=== PATIENT | female | born 1940 | race Caucasian/White ===

== ENCOUNTER → 2017-04-26 | Outpatient (CLI) | payer MEDICARE ==
--- NOTE | 2017-04-26 14:21 | US ---
EXAMINATION TYPE: US venous doppler duplex LE DATE OF EXAM: 04/26/2017 1:58 PM COMPARISON: NONE CLINICAL HISTORY: L03.119 Cellulitis of lower extremity. Bilateral leg pain and redness SIDE PERFORMED: Bilateral TECHNIQUE: The lower extremity deep venous system is examined utilizing real time linear array sonog zoe with graded compression, doppler sonography and color-flow sonography. VESSELS IMAGED: External Iliac Vein (EIV) Common Femoral Vein Deep Femoral Vein Greater Saphenous Vein * Femoral Vein Popliteal Vein Small Saphenous Vein * Proximal Calf Veins (* superficial vessels) Grayscale, color doppler, spectral doppler imaging performed of the deep veins of the lower extremiti es. There is normal flow, compressibility, vascular waveforms. Right Leg: Negative for DVT Left Leg: Negative for DVT IMPRESSION: No evidence for dvt
--- NOTE | 2017-05-04 15:39 | P.ARTDOP ---
Arterial Doppler LOWER EXTREMITY ARTERIAL DOPPLER: DATE OF SERVICE: 04/26/2017 Reason for study: Bilateral leg pain. Doppler waveforms: Multiphasic bilaterally throughout. Pulse volume recording: []. Pressure gradients: None. Ankle-brachial indices: Greater than 1 bilaterally. Toe pressures: [] on the right, [] on the left Impression: Normal study.
== END | disposition home or self-care (01) ==
LOC: RADUSWWP 12:53
PROVIDERS: ATTEND Family Medicine
DX: R09.89 Other specified symptoms and signs involving the circulatory and respiratory systems (principal); L03.119 Cellulitis of unspecified part of limb
CPT/HCPCS: 93922; 93970

== ENCOUNTER → 2017-06-22 | Outpatient (CLI) | payer MEDICARE ==
--- NOTE | 2017-06-23 10:30 | MM ---
Reason for exam: screening (asymptomatic). Last mammogram was performed 1 year and 3 months ago. History: Patient is postmenopausal. Family history of breast cancer in sister at age 72. Took hormonal contraceptives for 3 years beginning at age 24. Took estrogen for 2 years beginning at age 40. Took progesterone for 2 years beginning at age 40. Physical Findings: A clinical breast exam by your physician is recommended on an annual basis and results should be correlated with mammographic findings. MG 3D Screening Mammo W/Cad Bilateral CC and MLO view(s) were taken. Prior study comparison: March 10, 2016, bilateral MG 3d diag mammo w/cad DAE. March 05, 2015, bilateral MG diagnostic mammo w CAD DAE. November 28, 2013, bilateral digital screening mammo w/CAD. The breast tissue is heterogeneously dense. This may lower the sensitivity of mammography. No suspicious abnormality. No significant changes when compared with prior studies. ASSESSMENT: Negative, BI-RAD 1 RECOMMENDATION: Routine screening mammogram of both breasts in 1 year.
--- NOTE | 2017-06-23 11:48 | BD ---
EXAMINATION TYPE: MG DEXA axial skeleton. DATE OF EXAM: 06/22/2017 COMPARISON: NONE CLINICAL HISTORY: Postmenopausal female Height: 5 FT 6IN Weight: 160 FRAX RISK QUESTIONS: Alcohol (3 or more units per day): NO Family History (Parent hip fracture): NO Glucocorticoids (More than 3mos): NO (Ex: prednisone, prednisolone, methylprednisolone, dexamethasone, and hydrocortisone). History of Fracture in Adulthood: YES Secondary Osteoporosis: 1. Type 1 Diabetes: NO 2. Hyperthyroidism: NO 3. Menopause before 45: NO 4. Malnutrition: NO 5. Chronic liver disease: NO Rheumatoid Arthritis: NO Current Tobacco Use: NO RISK FACTORS HISTORY OF: Postmenopausal woman: AGE 50 Additional Medications: VICODIN, HYDROCODONE, ZANAFLEX, Additional History: PT HAS MS EXAM MEASUREMENTS: Bone mineral densitometry was performed using the [employer] System. Bone mineral density as measured about the Lumbar spine is: ----- L1-L4(G/cm2): 1.229 T Score Values are as follows: ----- L2: 0.6 ----- L3: 2.2 ----- L4: -0.4 ----- L1-L4: 0.4 Bone mineral density has: Increased 7.2% since study of: 2014 Bone mineral density about the R hip (g/cm2): 0.748 Bone mineral density about the L hip (g/cm2): 0.726 T Score values are as follows: -----R Neck: -2.1 -----L Neck: -2.2 -----R Total: -2.0 -----L Total: -2.1 Bone mineral density has: Decreased -7.3% since study of: 2014 IMPRESSION: Findings compatible with osteopenia about the lumbar spine as such there is increased fracture risk. NOTE: T-SCORE=SD OF THE YOUNG ADULT MEAN.
== END | disposition home or self-care (01) ==
LOC: RADMAMWWP 15:40
PROVIDERS: ATTEND Obstetrics & Gynecology
DX: Z12.31 Encounter for screening mammogram for malignant neoplasm of breast (principal); M85.88 Other specified disorders of bone density and structure, other site
CPT/HCPCS: 77080; 77063; G0202

== ENCOUNTER 2017-08-10 08:48 | Day surgery (SDC) | payer MEDICARE ==
[2017-08-08 11:11] VITALS: BMI 25.8
[~2017-08-10 08:48] MED LIST: LACTATED RINGERS 1,000 ML IV SCH; LIDOCAINE 1% 20 ML VIAL (10MG/ML) FOR IV START INTRADERMA PRN; MOXIFLOXACIN HCL 0.5% DROPS 3 ML BTL OP ONE; PHENYLEPHRINE 2.5% OPHTH DRP 2ML OP NR; TETRACAINE 0.5% OPHTH (PF) DROPS 4 ML BTL OP ONE; TIMOLOL 0.5% OPHTH SOLN (PF) 0.2 ML DROPERETTE OP ONE
[2017-08-10 10:13] VITALS: TEMP 98
[2017-08-10] MEDS: CYCLOPENTOLATE 1% OPHTH SOLN 2 ML BTL OP ONE ×3 (10:17→10:38)
[2017-08-10] MEDS ORDERED: MIDAZOLAM 2 MG/2 ML VIAL ONE (10:53)
[2017-08-10] MEDS ORDERED: fentaNYL (PF) 50 MCG/ML 2 ML AMP ONE (10:53)
[2017-08-10] MEDS ORDERED: DUOVISC KIT (GREEN BOX) INTRAOCULA ONE (10:54)
[2017-08-10] MEDS ORDERED: LIDOCAINE 1% (PF) 10MG/ML VIAL SQ ONE (10:54)
[2017-08-10] MEDS ORDERED: BALANCED SALT IRRIG SOLN COMB2 15 ML IRRIG.SOLN INTRAOCULA ONE (10:54)
[2017-08-10] MEDS ORDERED: EPINEPHrine (PF) 0.3 ML in BALANCED SALT IRRIG SOLN COMB2 500 ML IRRIGATION ONE (10:55)
--- NOTE | 2017-08-10 11:31 | P.OP ---
Date of Procedure: 08/10/17 Preoperative Diagnosis: NS & PSC & POA mild Postoperative Diagnosis: same Procedure(s) Performed: PIOL OS & iStent implantation Implants: PCB0 20.50 & iStent [id number] Anesthesia: MAC Surgeon: Víctor Logan Estimated Blood Loss (ml): 0 Pathology: none sent Condition: stable Disposition: same day Indications for Procedure: POAG & glaucoma Operative Findings: No complications
[2017-08-10 11:34] VITALS: PULSE 62
[2017-08-10 11:47] VITALS: BP 164/82; RESP 16
--- NOTE | 2017-08-11 06:04 | OP ---
OPERATIVE REPORT DATE OF SURGERY: August 10, 2017. PROCEDURE: Phacoemulsification of cataract in the left eye with an eye stent implantation, left eye. PREOPERATIVE DIAGNOSES: Nuclear sclerosis, cortical sclerosis and posterior subcapsular cataract with primary open-angle glaucoma mild stage. SURGEON: Dr. Víctor Logan. ANESTHESIA: Topical. ESTIMATED BLOOD LOSS: None. SPECIMEN: Taken none. NARRATIVE: After obtaining the appropriate consent, the patient was brought to the operating room there she was placed under cardiac monitoring, prepped and draped in the usual sterile manner. She was approached from the left temporal side and at the 5 o'clock position a 1.1 mm stab blade was used to create a paracentesis port. Through this opening, 1% Xylocaine MPF 50 50 mix of balanced salt solution was injected into the anterior chamber. This was followed by stabilization of the anterior chamber with Viscoat. At the 3 o'clock position a 2.5 mm keratome was used to create a self-sealing corneal flap incision in a Langerman's fashion. The patient's was then rotated, her head was rotated to approximately 45 degrees to her right. [place] prism was placed on the eye to examine the trabecular meshwork on the nasal side of the iris. This was easily seen and a Glaukos eye stent model GTS [id number] was passed across the anterior chamber and into the trabecular meshwork without difficulty. The stent was confirmed in the proper position and the patient was then returned to the normal supine position to complete the cataract. At this point a cystotome was introduced to begin a continuous tear capsulorrhexis which was then completed using the Utrata forceps. Hydrodissection and hydrodelineation of the lens was accomplished with balanced salt solution. Phacoemulsification of the lens was utilized using phaco chop was accomplished at 15.26 seconds at 12% power. Additional Xylocaine MPF was instilled in the anterior chamber. This was followed by careful removal of the remaining cortex and careful polishing of the posterior capsule in the capsule vacuum mode. Additional viscoelastic was then used to stabilize the capsular bag and the anterior chamber. An ANTHONY PCB 0 0 20.5 diopter posterior chamber intraocular lens was then introduced into the capsular bag without difficulty. The remaining viscoelastic was then removed from in and around the intra-ocular lens. The eye was brought to normal intraocular pressure through the paracentesis port and the incisions were confirmed watertight. At this point, she received 2 drops of 0.5% timolol followed by 2 drops of Vigamox was then lightly patched and shielded in the usual manner. There were no complications from the procedure. She tolerated the procedure well, was returned to outpatient recovery in good condition. BULMARO / JERRI: [id number] /
== END 2017-08-10 12:27 | disposition home or self-care (01) ==
LOC: OR 08:48
PROVIDERS: ATTEND Ophthalmology
DX: H25.12 Age-related nuclear cataract, left eye (principal); H25.012 Cortical age-related cataract, left eye; H25.042 Posterior subcapsular polar age-related cataract, left eye; M35.00 Sjogren syndrome, unspecified; H40.1131 Primary open-angle glaucoma, bilateral, mild stage; H40.053 Ocular hypertension, bilateral; Z96.1 Presence of intraocular lens; H40.032 Anatomical narrow angle, left eye; H52.4 Presbyopia; H52.223 Regular astigmatism, bilateral; G35 Multiple sclerosis; M48.00 Spinal stenosis, site unspecified; M19.90 Unspecified osteoarthritis, unspecified site; Z79.891 Long term (current) use of opiate analgesic; Z79.899 Other long term (current) drug therapy; Z79.82 Long term (current) use of aspirin; Z88.8 Allergy status to other drugs, medicaments and biological substances
CPT/HCPCS: 66984; 66183; C1780; C1783; J2250; J0171; J3010; J2001

== ENCOUNTER → 2018-07-06 | Outpatient (CLI) | payer MEDICARE ==
--- NOTE | 2018-07-10 09:11 | MM ---
Reason for exam: screening (asymptomatic). Last mammogram was performed 1 year ago. History: Patient is postmenopausal. Family history of breast cancer in sister at age 72. Took hormonal contraceptives for 3 years beginning at age 24. Took estrogen for 2 years beginning at age 40. Took progesterone for 2 years beginning at age 40. Physical Findings: A clinical breast exam by your physician is recommended on an annual basis and results should be correlated with mammographic findings. MG 3D Screening Mammo W/Cad Bilateral CC and MLO view(s) were taken. Prior study comparison: June 22, 2017, bilateral MG 3d screening mammo w/cad. March 10, 2016, bilateral MG 3d diag mammo w/cad DAE. The breast tissue is heterogeneously dense. This may lower the sensitivity of mammography. No significant changes when compared with prior studies. ASSESSMENT: Benign, BI-RAD 2 RECOMMENDATION: Routine screening mammogram of both breasts in 1 year.
== END | disposition home or self-care (01) ==
LOC: RADMAMWWP 14:07
PROVIDERS: ATTEND Obstetrics & Gynecology
DX: Z12.31 Encounter for screening mammogram for malignant neoplasm of breast (principal)
CPT/HCPCS: 77063; 77067

== ENCOUNTER → 2019-08-16 | Outpatient (CLI) | payer MEDICARE ==
--- NOTE | 2019-08-17 14:36 | MM ---
Reason for exam: screening (asymptomatic). Last mammogram was performed 1 year and 1 month ago. History: Patient is postmenopausal. Family history of breast cancer in sister at age 72. Took hormonal contraceptives for 3 years beginning at age 24. Took estrogen for 2 years beginning at age 40. Took progesterone for 2 years beginning at age 40. Physical Findings: A clinical breast exam by your physician is recommended on an annual basis and results should be correlated with mammographic findings. MG 3D Screening Mammo W/Cad Bilateral CC and MLO view(s) were taken. Prior study comparison: July 06, 2018, bilateral MG 3d screening mammo w/cad. June 22, 2017, bilateral MG 3d screening mammo w/cad. The breast tissue is heterogeneously dense. This may lower the sensitivity of mammography. There are benign appearing round vascular calcifications bilaterally. There is no discrete abnormality. ASSESSMENT: Benign, BI-RAD 2 RECOMMENDATION: Routine screening mammogram of both breasts in 1 year.
== END | disposition home or self-care (01) ==
LOC: RADMAMWWP 15:19
PROVIDERS: ATTEND Obstetrics & Gynecology
DX: Z12.31 Encounter for screening mammogram for malignant neoplasm of breast (principal)
CPT/HCPCS: 77063; 77067

== ENCOUNTER → 2020-04-25 | Outpatient (CLI) | payer MEDICARE ==
--- NOTE | 2020-04-26 05:58 | XR ---
EXAMINATION TYPE: XR foot complete bilateral DATE OF EXAM: 04/25/2020 CLINICAL HISTORY: Bilateral pain after fall injury. TECHNIQUE: Frontal, lateral, and oblique images of the bilateral feet are obtained. COMPARISON: None FINDINGS: [place] osseous structures are demineralized which is noted to lower radiographic sensitivit y. Some flexion in the toes is present bilaterally also lowers sensitivity. Hallux valgus first metat arsophalangeal joint is present bilaterally. Additional valgus positioning of the distal toes is note d bilaterally. No acute fracture or dislocation is clearly seen in either foot. Joint spaces are fair ly well-maintained. Mild diffuse subcutaneous edema is noted bilaterally. IMPRESSION: There is no acute fracture or dislocation in either foot.
== END | disposition home or self-care (01) ==
LOC: RADXRYALE 15:05
PROVIDERS: ATTEND Family Medicine
DX: M79.671 Pain in right foot (principal); M79.672 Pain in left foot

== ENCOUNTER 2024-04-27 15:00 | Inpatient (IN) | payer MEDICARE ==
[2024-04-30] MEDS ORDERED: ONDANSETRON 4 MG/2 ML VIAL ONE (11:53)
[2024-04-30] MEDS ORDERED: PANTOPRAZOLE 40 MG/10 ML VIAL ONE (11:53)
[2024-04-30] MEDS ORDERED: SODIUM CHLORIDE 0.9% 1,000 ML BAG ONE (11:56)
[2024-05-01] MEDS ORDERED: PEG 3350 (236 GM/BTL) + LYTES 4,000 ML BOTTLE ONE (00:01)
[2024-05-01] MEDS ORDERED: SODIUM CHLORIDE 0.9% 1,000 ML BAG ONE (00:01)
[2024-05-01] MEDS ORDERED: tiZANidine 4 MG TAB ONE ×3 (09:07→20:22)
[2024-05-01] MEDS ORDERED: HYDROcodone/APAP 5-325MG 1 EACH TAB ONE (12:58)
[2024-05-01] MEDS ORDERED: polyethylene glycoL 3350 17 GM POWD.PACK ONE (12:58)
[2024-05-01] MEDS ORDERED: PANTOPRAZOLE 40 MG/10 ML VIAL ONE (20:22)
[2024-05-02] MEDS ORDERED: SODIUM CHLORIDE 0.9% 1,000 ML BAG ONE (00:01)
[2024-05-02] MEDS ORDERED: DEXTROSE 50% SYRINGE 50 ML IVP ONE (02:34)
[2024-05-02] MEDS ORDERED: tiZANidine 4 MG TAB ONE ×3 (08:31→20:22)
[2024-05-02] MEDS ORDERED: PANTOPRAZOLE 40 MG/10 ML VIAL ONE ×2 (08:31→20:22)
[2024-05-02] MEDS ORDERED: PROPOFOL 10 MG/ML 20 ML VIAL IV ONE (14:15)
[2024-05-02] MEDS ORDERED: HYDROcodone/APAP 5-325MG 1 EACH TAB ONE (20:22)
[2024-05-03] MEDS ORDERED: SODIUM CHLORIDE 0.9% 1,000 ML BAG ONE (00:01)
[2024-05-03] MEDS ORDERED: LACTATED RINGERS 1,000 ML BAG ONE (00:01)
[2024-05-03] MEDS ORDERED: IBUPROFEN 400 MG TAB ONE ×2 (00:01→23:09)
[2024-05-03] MEDS ORDERED: HYDROcodone/APAP 5-325MG 1 EACH TAB ONE ×2 (06:24→13:21)
[2024-05-03] MEDS ORDERED: PANTOPRAZOLE 40 MG/10 ML VIAL ONE ×2 (08:57→20:44)
[2024-05-03] MEDS ORDERED: tiZANidine 4 MG TAB ONE ×2 (08:58→13:21)
[2024-05-03] MEDS ORDERED: polyethylene glycoL 3350 17 GM POWD.PACK ONE (08:58)
[2024-05-04] MEDS ORDERED: SODIUM CHLORIDE 0.9% 1,000 ML BAG ONE (00:01)
[2024-05-04] MEDS ORDERED: SIMETHICONE 80 MG CHEWABLE ONE (00:01)
[2024-05-04] MEDS ORDERED: polyethylene glycoL 3350 17 GM POWD.PACK ONE (09:21)
[2024-05-04] MEDS ORDERED: PANTOPRAZOLE 40 MG/10 ML VIAL ONE ×2 (09:21→21:24)
[2024-05-04] MEDS ORDERED: ACETAMINOPHEN IV (For NPO) 100 ML ONE ×3 (13:45→23:50)
[2024-05-05] MEDS ORDERED: SODIUM CHLORIDE 0.9% 1,000 ML BAG ONE (00:01)
[2024-05-05] MEDS ORDERED: SIMETHICONE 80 MG CHEWABLE ONE (00:01)
[2024-05-05] MEDS ORDERED: ACETAMINOPHEN IV (For NPO) 100 ML ONE (06:34)
[2024-05-05] MEDS ORDERED: PANTOPRAZOLE 40 MG/10 ML VIAL ONE ×2 (09:06→20:25)
[2024-05-05] MEDS ORDERED: polyethylene glycoL 3350 17 GM POWD.PACK ONE (09:06)
[2024-05-05] MEDS ORDERED: POTASSIUM CHLORIDE ER 20 MEQ TAB.ER PO ONE (11:43)
[2024-05-06] MEDS ORDERED: ONDANSETRON 4 MG/2 ML VIAL IVP PRN
[2024-05-06] MEDS ORDERED: LORazepam 2 MG/ML INJ IV PRN
[2024-05-06] MEDS ORDERED: NALOXONE 0.4 MG/ML 1 ML VIAL IVP PRN
[2024-05-06] MEDS: SODIUM CHLORIDE 0.9% 1,000 ML IV SCH (03:44)
[2024-05-06] MEDS: SIMETHICONE 80 MG CHEWABLE PO SCH (03:44)
[2024-05-06 05:23] LABS: African American GFR (CKD) >90 (>60 ml/min/1.73 sqM); Anion Gap 4 mmol/L; Blood Urea Nitrogen 9 mg/dL (7-17); Calcium 8.7 mg/dL (8.4-10.2); Carbon Dioxide 26 mmol/L (22-30); Chloride 111 mmol/L (98-107); Glucose 91 mg/dL (74-99); Magnesium 1.9 mg/dL (1.6-2.3); Non-African American GFR(CKD) 83 (>60 ml/min/1.73 sqM); Potassium 3.7 mmol/L (3.5-5.1); Sodium 141 mmol/L (137-145)
[2024-05-06 06:10] LABS: Basophils % (A) 1 %; Eosinophils # (A) 0.5 k/uL (0-0.7); Eosinophils % (A) 10 %; HCT 31.7 % (34.0-46.0); HGB 10.5 gm/dL (11.4-16.0); Lymphocytes # (A) 1.1 k/uL (1.0-4.8); Lymphocytes % (A) 21 %; MCH 31.3 pg (25.0-35.0); Mean Platelet Volume 9.3; Monocytes # (A) 0.4 k/uL (0-1.0); Monocytes % (A) 8 %; Neutrophils # (A) 2.9 k/uL (1.3-7.7); Neutrophils % (A) 58 %; Platelet Count 172 k/uL (150-450); RBC 3.34 m/uL (3.80-5.40); RDW 12.9 % (11.5-15.5)
[2024-05-06] MEDS: PANTOPRAZOLE 40 MG/10 ML VIAL IVP SCH (07:49)
[2024-05-06] MEDS: polyethylene glycoL 3350 17 GM POWD.PACK PO SCH (07:49)
[2024-05-06] MEDS: HYDROCORTISONE 1% CREAM 454 GM JAR TOPICAL SCH (07:51)
[2024-05-06] MEDS ORDERED: HYDROCORTISONE 1% CREAM 30 GM TUBE TOPICAL SCH (09:00)
--- NOTE | 2024-05-06 11:11 | P.PN ---
Subjective Progress Note Date: 05/06/24 Hospital course: Patient is a very pleasant 84-year-old female with a past medical history of MS and PVD with chronic venous stasis. She is currently hospitalized for evaluation of acute lower GI bleed with reports of bright red blood per rectum. She underwent evaluation by gastroenterology and was taken for colonoscopy which revealed diverticulosis without acute diverticulitis and no active signs of bleeding noted. Patient has had full resolution of rectal bleeding and resolut ion of right lower quadrant pain she was experiencing. Patient was to be discharged home with home care, however due to hospitalization patient experiencing increased weakness and tightness in her muscles and unable to get out of bed or transfer self independently. Patient awaiting evaluation by PT/OT for possible placement in SNF for rehab. Physical exam: Vital signs reviewed and stable. General: Nontoxic, no distress and appears stated age. Derm: Skin warm and dry, normal coloration for ethnicity. Head: Atraumatic, normocephalic and symmetric. Eyes: EOM's intact, no lid lag, and anicteric sclera Mouth: no lip lesions, mucus membranes moist Cardiovascular: regular rate and rhythm with normal S1S2, no murmur, positive posterior tibial pulses bilaterally, and cap refill < 2 seconds. Lungs: Respirations even, regular, and unlabored on room air. Lungs CTA bilaterally, no rhonchi, no rales, no wheezing, and no accessory muscle usage. Abdominal: soft, nontender to palpation, no guarding, no appreciable organomegaly Ext: Movement and sensation intact. No gross muscle atrophy, no edema, no contractures. Venous discoloration bilateral lower extremities, no open wounds or ulcers noted Neuro: Speech clear, face symmetrical and CN II-XII grossly intact with no noted focal neuro deficits Psych: Alert and oriented to person, place, time, and situation. Appropriate and pleasant affect. Assessment and Plan of Care: Generalized weakness, secondary to prolonged hospitalization with underlying MS resulting in muscle stiffness/weakness Acute lower GI bleed Acute blood loss anemia, secondary to above Right lower quadrant abdominal pain Isolated episode of hypotension with EKG changes Multiple sclerosis Chronic venous stasis GI evaluated, took patient for colonoscopy revealing diverticulosis and no signs of acute bleeding clearing patient from their perspective for discharge recommending outpatient follow-up in their office. Cardiology was consulted for episode of hypotension in which patient was found to have EKG changes in inferior leads with T wave inversion in leads III and aVF. PT/OT to evaluate as patient will likely need SNF for rehab upon discharge. Patient to continue Protonix 40 mg twice daily for GI prophylaxis. Continue Zanaflex 4 mg 3 times daily and [place] 5/325 mg tablets 3 times daily as needed for pain. Right upper extremity pain and swelling, status post IV infiltrate 2 days prior with normal saline Order placed for right upper extremity venous Doppler. Cool compresses to be applied for comfort. CODE STATUS: Full code DVT prophylaxis: SHANTEL ramirez and SCDs Anticipated discharge date: Pending evaluation by PT/OT as patient will likely need SNF for rehab at discharge, patient otherwise medically cleared for discharge Anticipated discharge place: SNF Patient was seen independently by Nurse Pracitioner. This document was prepared using [employer] dictation software. Please allow for errors in conduit cleaner, while rare they do occur. Stanley Neal NP rendered care for this patient independently, reviewed the findings and plan as documented in the note above. I did not physically speak with or examine the patient on this date. Objective - Vital Signs Vital signs: Vital Signs Temp 98.4 F 05/06/24 07:47 Pulse 76 05/06/24 07:47 Resp 16 05/06/24 07:47 BP 154/77 05/06/24 07:47 Pulse Ox 95 05/06/24 07:47 FiO2 Intake & Output 05/05/24 05/06/24 05/06/24 18:59 06:59 18:59 Output Total 1100 Balance -1100 Weight 71.5 kg 64 kg Output: Urine 1100 Other: Voiding Method Diaper External Catheter # Voids 1 - Labs CBC & Chem 7: 05/06/24 03:35 05/06/24 03:35 Labs: Abnormal Lab Results - Last 24 Hours (Table) 05/06/24 05/06/24 Range/Units 03:35 03:35 RBC 3.34 L (3.80-5.40) m/uL Hgb 10.5 L (11.4-16.0) gm/dL Hct 31.7 L (34.0-46.0) % Chloride 111 H (98-107) mmol/L
[2024-05-06] MEDS: LACTULOSE 20 GM/30 ML CUP PO ONE (11:20)
[2024-05-06] MEDS: tiZANidine 4 MG TAB PO SCH (11:21)
--- NOTE | 2024-05-06 12:55 | US ---
EXAMINATION TYPE: US venous doppler duplex UE RT DATE OF EXAM: 05/06/2024 COMPARISON: NONE CLINICAL INDICATION: Female, 84 years old with history of RUE swelling, IV previously infiltrated 2 d ays ago; Pain and swelling near right antecubital fossa where recent IV site was SIDE PERFORMED: Right FINDINGS: Grayscale, color doppler, spectral doppler imaging performed of the deep veins of the upper extremiti es. There is normal flow, compressibility and vascular waveforms. Right Arm: Negative for DVT, positive SVT within right cephalic vein near antecubital fossa at prior IV site IMPRESSION: 1. No evidence for DVT within the right upper extremity. 2. However, exam is positive for SVT involving the cephalic vein near the elbow at the prior IV site.
[2024-05-07] MEDS: PANTOPRAZOLE 40 MG/10 ML VIAL ONE (12:29)
[2024-05-07] MEDS: MAGNESIUM CITRATE 296 ML BOTTLE PO ONE (13:02)
--- NOTE | 2024-05-07 14:32 | P.PN ---
Subjective Progress Note Date: 05/07/24 Hospital course: Patient is a very pleasant 84-year-old female with a past medical history of MS and PVD with chronic venous stasis. She is currently hospitalized for evaluation of acute lower GI bleed with reports of bright red blood per rectum. She underwent evaluation by gastroenterology and was taken for colonoscopy which revealed diverticulosis without acute diverticulitis and no active signs of bleeding noted. Patient has had full resolution of rectal bleeding and resolut ion of right lower quadrant pain she was experiencing. Patient was to be discharged home with home care, however due to hospitalization patient experiencing increased weakness and tightness in her muscles and unable to get out of bed or transfer self independently. Patient awaiting evaluation by PT/OT for possible placement in SNF for rehab. Physical exam: Vital signs reviewed and stable. General: Nontoxic, no distress and appears stated age. Derm: Skin warm and dry, normal coloration for ethnicity. Head: Atraumatic, normocephalic and symmetric. Eyes: EOM's intact, no lid lag, and anicteric sclera Mouth: no lip lesions, mucus membranes moist Cardiovascular: regular rate and rhythm with normal S1S2, no murmur, positive posterior tibial pulses bilaterally, and cap refill < 2 seconds. Lungs: Respirations even, regular, and unlabored on room air. Lungs CTA bilaterally, no rhonchi, no rales, no wheezing, and no accessory muscle usage. Abdominal: soft, nontender to palpation, no guarding, no appreciable organomegaly Ext: Movement and sensation intact. No gross muscle atrophy, no edema, no contractures. Venous discoloration bilateral lower extremities, no open wounds or ulcers noted Neuro: Speech clear, face symmetrical and CN II-XII grossly intact with no noted focal neuro deficits Psych: Alert and oriented to person, place, time, and situation. Appropriate and pleasant affect. Assessment and Plan of Care: Generalized weakness, secondary to prolonged hospitalization with underlying MS resulting in muscle stiffness/weakness Acute lower GI bleed Acute blood loss anemia, secondary to above Right lower quadrant abdominal pain Isolated episode of hypotension with EKG changes Multiple sclerosis Chronic venous stasis GI evaluated, took patient for colonoscopy revealing diverticulosis and no signs of acute bleeding clearing patient from their perspective for discharge recommending outpatient follow-up in their office. Cardiology was consulted for episode of hypotension in which patient was found to have EKG changes in inferior leads with T wave inversion in leads III and aVF. PT/OT evaluated recommending SNF for rehab upon discharge. Patient to continue Protonix 40 mg twice daily for GI prophylaxis. Continue Zanaflex 4 mg 3 times daily and [place] 5/325 mg tablets 3 times daily as needed for pain. Right upper extremity pain and swelling, status post IV infiltrate 2 days prior with normal saline Superficial venous thrombosis Venous Doppler was negative for DVT however did reveal a SVT involving the cephalic vein near the elbow with the prior IV site. Symptomatic care and pain management with Tylenol/[place], elevation, and warm compresses to be applied for comfort. Constipation Order placed for mag citrate x 1 dose and patient to continue MiraLAX 17 g daily CODE STATUS: Full code DVT prophylaxis: x 1 dose.SHANTEL ramirez and SCDs Anticipated discharge date: Parents authorization. Patient to be discharged to [facility]. Anticipated discharge place: [facility] Patient was seen independently by Nurse Pracitioner. This document was prepared using [employer] dictation software. Please allow for errors in swimming coach, while rare they do occur. Stanley Neal NP rendered care for this patient independently, reviewed the findings and plan as documented in the note above. I did not physically speak with or examine the patient on this date. Objective - Vital Signs Vital signs: Vital Signs Temp 97.8 F 05/07/24 04:05 Pulse 69 05/07/24 04:05 Resp 16 05/07/24 04:05 BP 158/76 05/07/24 04:05 Pulse Ox 96 05/07/24 04:05 FiO2 Intake & Output 05/06/24 05/07/24 05/07/24 18:59 06:59 18:59 Intake Total 600 560 Output Total 650 1650 Balance -50 -1090 Weight 61.5 kg Intake: IV 20 Invasive Line 2 20 Oral 600 540 Output: Urine 650 1650 Other: Voiding Method Diaper Diaper External Catheter External Catheter # Bowel Movements 0 - Labs CBC & Chem 7: 05/06/24 03:35 05/06/24 03:35
[2024-05-07] MEDS: HYDROcodone/APAP 5-325MG 1 EACH TAB PO PRN (21:11)
[2024-05-08] MEDS: OXYTROL PATCH TRANSDERM SCH (08:04)
[2024-05-08 08:10] VITALS: BP 145/63; PULSE 70; RESP 16; TEMP 98.3
--- NOTE | 2024-05-08 09:56 | P.DS ---
Providers Date of admission: 04/30/24 02:15 Expected date of discharge: 05/08/24 Attending physician: Haleigh Calix MD Consults: 04/30/24 15:00 Consult Physician Routine Consulting Provider: Yessenia Luis Consult Reason/Comments: GI Bleed Do you want consulting provider notified?: Already Contacted Primary care physician: Physician Nonstaff Hospital Course: Discharge Diagnosis: Generalized weakness, secondary to prolonged hospitalization with underlying MS resulting in muscle stiffness/weakness. Patient being discharged to [facility] for rehab. Acute lower GI bleed, underwent colonoscopy negative for acute bleeding. Patient had no further episodes of bright red blood per rectum. Hemoglobin stable on discharge. Acute blood loss anemia, secondary to above Right lower quadrant abdominal pain Isolated episode of hypotension with EKG changes Multiple sclerosis. Chronic venous stasis. Recommend SHANTEL hose to bilateral lower extremities and elevation of legs when not in use. Right upper extremity pain and swelling, status post IV infiltrate 2 days prior with normal saline Superficial venous thrombosis. Venous Doppler was negative for DVT however did reveal a SVT involving the cephalic vein near the elbow with the prior IV site.. Symptomatic care and pain management with Tylenol/[place], elevation, and warm compresses to be applied for comfort. Constipation. Resolved. Continue MiraLAX 17 g daily. Hospital Course: Patient is a very pleasant 84-year-old female with a past medical history of MS and PVD with chronic venous stasis. She is currently hospitalized for evaluation of acute lower GI bleed with reports of bright red blood per rectum. She underwent evaluation by gastroenterology and was taken for colonoscopy which revealed diverticulosis without acute diverticulitis and no active signs of bleeding noted. Patient has had full resolution of rectal bleeding and resolution of right lower quadrant pain she was experiencing. Patient was to be discharged home with home care, however due to hospitalization patient experiencing increased weakness and tightness in her muscles and unable to get out of bed or transfer self independently. Patient evaluated by PT/OT. She is requiring halfway facility for rehab at discharge. She has been accepted to [facility] and medically cleared for discharge at this time. Hemoglobin stable at 10.5 on discharge. Vital signs stable with blood pressure 145/63, heart rate 70, respiratory rate 16, temp 98.3 F, and SpO2 of 96% on room air. Physical exam: Vital signs reviewed and stable. General: Nontoxic, no distress and appears stated age. Derm: Skin warm and dry, normal coloration for ethnicity. Head: Atraumatic, normocephalic and symmetric. Eyes: EOM's intact, no lid lag, and anicteric sclera Mouth: no lip lesions, mucus membranes moist Cardiovascular: regular rate and rhythm with normal S1S2, no murmur, positive posterior tibial pulses bilaterally, and cap refill < 2 seconds. Lungs: Respirations even, regular, and unlabored on room air. Lungs CTA bilaterally, no rhonchi, no rales, no wheezing, and no accessory muscle usage. Abdominal: soft, nontender to palpation, no guarding, no appreciable organomegaly Ext: Movement and sensation intact. No gross muscle atrophy, no edema, no contractures. Venous discoloration bilateral lower extremities, no open wounds or ulcers noted Neuro: Speech clear, face symmetrical and CN II-XII grossly intact with no noted focal neuro deficits Psych: Alert and oriented to person, place, time, and situation. Appropriate and pleasant affect. A total of 35 minutes of time were spent preparing this complex discharge summary. Pt was discharged on 05/08/2024 at 9:50 AM. Patient was seen independently by Nurse Practitioner. This document was prepared using [employer] dictation software. Please allow for errors in apprenticeship representative while rare they do occur. I reviewed the documentation as provided by the XOCHILT above, who is the original author of this note. I agree with the documented assessment and plan, with the following changes: none Patient Condition at Discharge: Stable Plan - Discharge Summary New Discharge Prescriptions: New polyethylene glycoL 3350 [Miralax] 17 gm PO DAILY packet Pantoprazole [Protonix] 40 mg PO DAILY 90 Days #90 tab Carboxymethylcellulos/Glycerin [Refresh Relieva 0.5-0.9% Drop] 1 drop BOTH EYES Q4H PRN #10 ml PRN Reason: See Comments Continue Multivitamins, Thera [Multivitamin (formulary)] 1 tab PO DAILY Clotrimazole/Betameth Cream [Lotrisone] 1 applic TOPICAL BID Triamcinolone 0.1% Cream [Kenalog 0.1% Cream] 1 applicatio TOPICAL BID tiZANidine HCL [Zanaflex] 4 mg PO TID Vitamin E (Dl,Tocopheryl Acet) [Vitamin E] 1,000 unit PO DAILY Glucosamine/Chondr Silveira A Sod [Osteo Bi-Flex Caplet] 1 each PO BID Fish Oil/Dha/Epa [Fish Oil 1,200 mg Fish Oil] 1 each PO BID Calcium Carb/Vitamin D3/Vit K1 [Citracal-D3 500 mg Soft Chew] 1 each PO BID HYDROcodone/APAP 5-325MG [[place] 5-325] 1 tab PO Q6HR PRN #12 tab PRN Reason: Pain Discontinued Aspirin [Adult Low Dose Aspirin EC] 81 mg PO DAILY Discharge Medication List Calcium Carb/Vitamin D3/Vit K1 [Citracal-D3 500 mg Soft Chew] 1 each PO BID 08/08/17 [History] Clotrimazole/Betameth Cream [Lotrisone] 1 applic TOPICAL BID 08/08/17 [History] Fish Oil/Dha/Epa [Fish Oil 1,200 mg Fish Oil] 1 each PO BID 08/08/17 [History] Glucosamine/Chondr Silveira A Sod [Osteo Bi-Flex Caplet] 1 each PO BID 08/08/17 [History] Multivitamins, Thera [Multivitamin (formulary)] 1 tab PO DAILY 08/08/17 [History] Triamcinolone 0.1% Cream [Kenalog 0.1% Cream] 1 applicatio TOPICAL BID 08/08/17 [History] Vitamin E (Dl,Tocopheryl Acet) [Vitamin E] 1,000 unit PO DAILY 08/08/17 [History] tiZANidine HCL [Zanaflex] 4 mg PO TID 08/08/17 [History] Carboxymethylcellulos/Glycerin [Refresh Relieva 0.5-0.9% Drop] 1 drop BOTH EYES Q4H PRN #10 ml 05/08/24 [Rx] HYDROcodone/APAP 5-325MG [[place] 5-325] 1 tab PO Q6HR PRN #12 tab 05/08/24 [Rx] Pantoprazole [Protonix] 40 mg PO DAILY 90 Days #90 tab 05/08/24 [Rx] polyethylene glycoL 3350 [Miralax] 17 gm PO DAILY packet 05/08/24 [Rx] Follow up Appointment(s)/Referral(s): Rad Barrett MD [REFERRING] - 1-2 Days Yessenia Luis MD [STAFF PHYSICIAN] - 1 Week Discharge Disposition: TRANSFER TO [facility]
[2024-05-08 15:21] VITALS: BMI 22.6
--- NOTE | 2024-06-07 14:44 | PCN ---
PROCEDURE NOTE REQUESTING PHYSICIAN: None. BRIEF HISTORY: The patient is an 84-year-old pleasant white female, admitted to the hospital with acute lower GI bleed. She had multiple episodes of bright red blood per rectum with clots. Hemoglobin decreased to 10.4 g/dL. She is scheduled for a colonoscopy to evaluate further. Her last colonoscopy was more than 20 years ago. PROCEDURE PERFORMED: Colonoscopy. PREOPERATIVE DIAGNOSIS: Acute lower gastrointestinal bleed. ANESTHESIA: IV sedation per Anesthesia. DESCRIPTION OF PROCEDURE: After informed consent was obtained from the patient, she was brought into the endoscopy unit. IV conscious sedation was administered by Anesthesia under continuous monitoring. Initially, an Olympus pediatric colonoscope was then inserted to the rectum gradually advanced into the cecum with mild difficulty. Careful examination was performed as the scope was gradually being withdrawn. The ileocecal valve and appendiceal orifice were visualized that appeared normal. The prep was excellent. Mucosa of the cecum, ascending colon, transverse colon, descending colon appeared normal with a moderate sigmoid diverticulosis seen. There was no active bleeding identified. Rectum appeared normal. Retroflexion was performed in the rectum. No lesions were noted. The patient tolerated the procedure well. IMPRESSION: 1. Moderate left-sided diverticulosis. 2. No evidence of colorectal neoplasia. 3. No evidence of active lower gastrointestinal bleed. RECOMMENDATIONS: Findings of this examination were discussed with the patient as well as the family. Her diet will be advanced as tolerated. Repeat CBC in the morning and if hemoglobin remains stable, she can be discharged home tomorrow. MMODL / IJN: [id number] /
--- NOTE | 2024-06-08 11:31 | CT ---
EXAM: CT Abdomen and Pelvis With Intravenous Contrast CLINICAL HISTORY: GI BLEED UNCONTROLLABLE BLADDER. Oral and IV contrast TECHNIQUE: Axial computed tomography images of the abdomen and pelvis with intravenous contrast. CTDI is 18.7 mGy and DLP is 834.2 mGy-cm. This CT exam was performed using one or more of the following dose reduction techniques: automated exposure control, adjustment of the mA and/or kV according to patient size, and/or use of iterative reconstruction technique. COMPARISON: No relevant prior studies available. FINDINGS: Lung bases:Atelectasis at the lung bases. ABDOMEN: Liver:Unremarkable. No mass. Gallbladder and bile ducts:Cholecystectomy with intrahepatic and extrahepatic biliary ductal dilation. Pancreas:Unremarkable. No mass. No ductal dilation. Spleen:Unremarkable. No splenomegaly. Adrenals:Unremarkable. No mass. Kidneys and ureters:Unremarkable. No solid mass. No hydronephrosis. Stomach and bowel: Moderate fecal retention, correlate for constipation. Diverticulosis, without acute diverticulitis. No small bowel obstruction. No free intraperitoneal air. PELVIS: Appendix:No findings to suggest acute appendicitis. Bladder:Unremarkable. No mass. Reproductive:Unremarkable as visualized. ABDOMEN and PELVIS: Intraperitoneal space:Unremarkable. No free air. No significant fluid collection. Bones/joints:Degenerative changes of the spine. No acute fracture. No dislocation. Soft tissues:Unremarkable. Vasculature:Atherosclerotic changes of the aorta. No abdominal aortic aneurysm. Lymph nodes:Unremarkable. No enlarged lymph nodes. IMPRESSION: 1. Moderate fecal retention, correlate for constipation. 2. Diverticulosis, without acute diverticulitis. No small bowel obstruction. No free intraperitoneal air. Radiologist: Julien Muñiz MD Electronically Signed: 05/01/24 00:48 Study ready at 23:08 and initial results transmitted at 00:48 Results also transmitted to Film Room, Film Room @ [phone] (Fax) MTDD
== END 2024-05-08 15:40 | DRG 378 ==
LOC: 3SCARD 15:00 → UNDOADMIN 04-30 02:15 → 3SCARD 04-30 02:15 → UNDODISIN 05-08 15:40
PROVIDERS: ADMIT Internal Medicine; ATTEND Internal Medicine
PROC: 0DJD8ZZ Inspection of Lower Intestinal Tract, Via Natural or Artificial Opening Endoscopic (ICD-10-PCS; principal; 2024-05-02)
PROC: 0DJ08ZZ Inspection of Upper Intestinal Tract, Via Natural or Artificial Opening Endoscopic (ICD-10-PCS; 2024-05-02)
DX: K57.31 Diverticulosis of large intestine without perforation or abscess with bleeding (principal); D62 Acute posthemorrhagic anemia; I82.611 Acute embolism and thrombosis of superficial veins of right upper extremity; R53.1 Weakness; G35 Multiple sclerosis; I87.8 Other specified disorders of veins; I73.9 Peripheral vascular disease, unspecified; K59.00 Constipation, unspecified; R01.1 Cardiac murmur, unspecified; I95.9 Hypotension, unspecified
CPT/HCPCS: 45378; 74177; 80048; 83735; 85025; 86850; 86900; 86901; 96374; 96375; 99291

== ENCOUNTER → 2024-04-27 | Outpatient (CLI) | payer MEDICARE ==
--- NOTE | 2024-05-25 12:04 | XR ---
Site ID synapse default Patient Aruna Giron ID [id number] Age/Gender: 84Y, F Order # N/A Procedure ABDOMEN 1 V Date 04/27/2024 2:52:00 PM EXAMINATION TYPE: XR abdomen 1V DATE OF EXAM: 05/09/2024 COMPARISON: CT abdomen and pelvis 04/30/2024 HISTORY: Constipation TECHNIQUE: Single supine KUB image of the abdomen is obtained FINDINGS: Small bowel demonstrates no evidence for dilatation or air fluid levels. Mild colonic stool burden. No convincing evidence for pneumoperitoneum. No unusual calcifications. Cholecystectomy clips in the right upper quadrant. The lung bases are clear. The osseous structures are intact. Levoscoliotic curvature of the thoracolumbar spine. IMPRESSION: 1. Overall nonobstructive bowel gas pattern. 2. Mild colonic stool burden.
== END | disposition home or self-care (01) ==
LOC: RADXRYALE 14:30
PROVIDERS: ATTEND Physician Assistant Medical
DX: K59.00 Constipation, unspecified (principal); R19.5 Other fecal abnormalities
CPT/HCPCS: 74018

== ENCOUNTER → 2024-05-02 | Day surgery (SDC) | payer MEDICARE | LOC: ORWHC2ENDO 14:00 | PROVIDERS: ATTEND Internal Medicine Gastroenterology | DX: Z53.9 Procedure and treatment not carried out, unspecified reason (principal) | CPT/HCPCS: 45378 ==

== ENCOUNTER → 2024-10-15 | Outpatient (CLI) | payer MEDICARE ==
--- NOTE | 2024-10-15 12:41 | XR ---
EXAMINATION TYPE: XR lumbosacral spine min 4V DATE OF EXAM: 10/15/2024 11:46 AM COMPARISON: CT 04/30/2024 CLINICAL INDICATION: Female, 84 years old with history of [id number] SPINAL STENOSIS; YCH, pain TECHNIQUE: XR lumbosacral spine min 4V - Frontal, lateral , bilateral oblique and coned in L5-S1 late ral views of the spine. FINDINGS: Moderate to severe degeneration changes of the spine with osteophyte formation disc space n arrowing. Mild scoliosis changes present. L3 vertebral body may have compression deformity however it 's hard to evaluate given overlapping soft tissues. Cholecystectomy changes present. IMPRESSION: 1. Compression deformities at L3-3 present. There is scoliosis changes also present. Consider further evaluation with MRI. Patient body habitus limits evaluation for acute fractures. 2. Marked severe multilevel disc degeneration. [facility], , 10/15/2024 12:39 PM
== END | disposition home or self-care (01) ==
LOC: RADXRYALE 11:33
PROVIDERS: ATTEND Physician Assistant Medical
DX: M48.062 Spinal stenosis, lumbar region with neurogenic claudication (principal); M48.56XA Collapsed vertebra, not elsewhere classified, lumbar region, initial encounter for fracture; M51.379 Other intervertebral disc degeneration, lumbosacral region without mention of lumbar back pain or lower extremity pain
CPT/HCPCS: 72110